=== PATIENT | male | born 1990 ===

== ENCOUNTER 2017-01-10 20:37 | Emergency (ER) | payer BC, SELFPAY ==
[2017-01-10 20:59] VITALS: TEMP 99.2
[2017-01-10] MEDS ORDERED: Sodium Chloride 0.9% 1,000 ML IV STA (21:06)
--- NOTE | 2017-01-10 21:41 | ED PDOC ---
Arrival/HPI <Yadiel Gonzalez - Last Filed: 01/10/17 23:05> - General Historian: Patient - History of Present Illness Time/Duration: Other (7 hours) Symptom Onset: Sudden Symptom Course: Worsening Quality: Stabbing, Other (sharp) Severity Level: 10, Severe Activities at Onset: Rest <Laura Bedolla - Last Filed: 01/11/17 01:59> - General Chief Complaint: Male Genitourinary Time Seen by Provider: 01/10/17 20:57 - History of Present Illness Narrative History of Present Illness (Text): 01/10/17 21:58 26-year-old male presents today with a sudden onset of right-sided testicular pain that started around 1 PM today. Patient states the pain has been gradually worsening. Patient with a history of testicular torsion in the past. He denies penile discharge. Denies urinary symptoms. No bladder or bowel incontinence. He denies abdominal pain. Denies back pain. Denies fevers or chills. Patient states she is sexually active with only one partner. No dizziness or weakness. No medications have been taken for pain at home. Patient denies any recent trauma or injury. Patient rates the pain as a 10 out of 10 sharp nonradiating pain. (Laura Bedolla) Past Medical History - Provider Review Nursing Documentation Reviewed: Yes - Travel History Have you recently traveled outside [place] w/in the past 3 mons?: No - Tetanus Immunization Tetanus Immunization: Unknown - Psychiatric Hx Substance Use: No - Surgical History Other/Comment: nail bed surgery <Laura Bedolla - Last Filed: 01/11/17 01:59> Family/Social History - Physician Review Nursing Documentation Reviewed: Yes Family/Social History: Unknown Family HX Smoking Status: Never Smoked Hx Alcohol Use: No Hx Substance Use: No <Laura Bedolla - Last Filed: 01/11/17 01:59> Allergies/Home Meds <Yadiel Gonzalez - Last Filed: 01/10/17 23:05> <Laura Bedolla - Last Filed: 01/11/17 01:59> Allergies/Adverse Reactions: Allergies No Known Allergies Allergy (Verified 01/10/17 20:58) Review of Systems - Review of Systems Constitutional: absent: Fatigue, Fevers Respiratory: absent: SOB, Cough Cardiovascular: absent: Chest Pain, Palpitations Gastrointestinal: Nausea. absent: Abdominal Pain, Constipation, Diarrhea, Vomiting Genitourinary Male: Other (+ testicular pain). absent: Dysuria, Frequency, Hematuria, Urinary Output Changes Musculoskeletal: absent: Arthralgias, Back Pain Skin: absent: Rash, Pruritis Neurological: absent: Headache, Dizziness Psychiatric: absent: Anxiety, Depression <Laura Bedolla - Last Filed: 01/11/17 01:59> Physical Exam Vital Signs Reviewed: Yes Temperature: Afebrile Blood Pressure: Hypertensive Pulse: Tachycardic Respiratory Rate: Normal Appearance: Positive for: Well-Appearing, Non-Toxic, Uncomfortable Pain Distress: Moderate Mental Status: Positive for: Alert and Oriented X 3 - Systems Exam Head: Present: Atraumatic Mouth: Present: Moist Mucous Membranes Respiratory/Chest: Present: Clear to Auscultation Cardiovascular: Present: Tachycardic. No: Murmurs Abdomen: No: Tenderness, Distention, Rebound, Guarding Genitourinary Male: Present: Normal External Genitalia, Testicle Tenderness, Other (elevation of right testicle; chaparoned by [employer] tech Gloria). No: Penile Discharge, Erythema, Testicle Swelling Back: Present: Normal Inspection. No: CVA Tenderness, Midline Tenderness, Paraspinal Tenderness Upper Extremity: Present: Normal ROM Lower Extremity: Present: Normal ROM Neurological: Present: GCS=15 Skin: Present: Warm, Dry, Normal Color. No: Rashes Psychiatric: Present: Alert, Oriented x 3 <Laura Bedolla - Last Filed: 01/11/17 01:59> Vital Signs Temp Pulse Resp BP Pulse Ox 01/11/17 00:18 89 18 128/84 98 01/10/17 20:59 99.2 F 116 H 22 154/86 H 99 Medical Decision Making <Yadiel Gonzalez - Last Filed: 01/10/17 23:05> <Laura Bedolla - Last Filed: 01/11/17 01:59> ED Course and Treatment: 01/10/17 22:02 26yr old male with testicular pain x 7 hours. no trauma or injury toradol zofran fluids cbc: [id number] cmp: bun; 23 ua:trace blood gc/chlamydia pending urine culture pending US: FINDINGS: Right testicle: No mass. No torsion. Left testicle: No mass. No torsion. Epididymides: Mildly heterogeneous, mildly enlarged, hypervascular RIGHT epididymis. Scrotum: Small RIGHT hydrocele. Trace LEFT hydrocele. RIGHT varicocele. IMPRESSION: 1. No sonographic evidence of testicular torsion. 2. Findings suggestive of RIGHT epididymitis. 3. Incidental/non-acute findings are described above Rocephin 250 IM, Zithromax 1 g by mouth pt reassessment; feeling better after medications will treat for gc/chlamydia; and d/c home with bactrim. I discussed all results in depth with the patient advised to follow-up with primary care physician within the next 2 days. Advised follow-up with urologist. I advised immediate return if symptoms worsen or persist or if new concerning symptoms develop Patient verbalizes understanding of discharge instructions and need for immediate followup. all aspects of this case were discussed the attending of record. impression; epididymitis, hydrocele, varicocele Motrin every 6 hours as needed for pain bactrim; 1 tablet twice daily x 7 days Follow up with a urologist within the next 2 days Follow-up primary care physician within the next 2 days Return immediately if symptoms worsen or persist or if new concerning symptoms develop 01/11/17 01:59 (Laura Bedolla) - Lab Interpretations Lab Results: 01/10/17 21:45 01/10/17 21:45 Lab Results 01/10/17 23:08: Urine Color Yellow, Urine Appearance Sl cloudy, Urine pH 6.0, Ur Specific [place] 1.025, Urine Protein Negative, Urine Glucose (UA) Negative, Urine Ketones Negative, Urine Blood Trace-intact H, Urine Nitrate Negative, Urine Bilirubin Negative, Urine Urobilinogen 0.2, Ur Leukocyte Esterase Negative , Urine RBC 1 - 3, Urine WBC 5 - 10, Ur Epithelial Cells 0 - 2, Urine Bacteria Rare 01/10/17 21:45: WBC 11.5 H, RBC 4.99, Hgb 15.3, Hct 43.1, MCV 86.4, MCH 30.7, MCHC 35.5, RDW 12.2, Plt Count 248, MPV 11.0, Gran % 62.9, Lymph % (Auto) 24.2, Clarke % (Auto) 10.5 H, Eos % (Auto) 2.2, Baso % (Auto) 0.2, Gran # 7.22 H, Lymph # 2.8, Clarke # 1.2 H, Eos # 0.3, Baso # 0.02, Sodium 141, Potassium 3.6, Chloride 101, Carbon Dioxide 27, Anion Gap 17, BUN 23 H, Creatinine 1.0, Est GFR ( Amer) > 60, Est GFR (Non-Af Amer) > 60, Random Glucose 88, Calcium 9.9, Total Bilirubin 0.8, AST 27, ALT 43, Alkaline Phosphatase 85, Total Protein 8.2, Albumin 4.8, Globulin 3.4, Albumin/Globulin Ratio 1.4 - RAD Interpretation Radiology Orders: 01/10/17 20:58 TESTES DUPLEX COMPLETE [US] Stat - Medication Orders Current Medication Orders: Discontinued Medications Azithromycin (Zithromax) 1,000 mg PO STAT STA PRN Reason: Protocol Stop: 01/10/17 22:46 Last Admin: 01/11/17 00:20 Dose: 1,000 MG Ceftriaxone Sodium (Rocephin) 250 mg IM STAT STA PRN Reason: Protocol Stop: 01/10/17 22:46 Last Admin: 01/11/17 00:20 Dose: 250 MG IM Administration Charges Document 01/11/17 00:20 OSVALDO (Rec: 01/11/17 00:20 [email or web address] [id number]) Injection Site MAR Injection Site Left Deltoid Charges for Administration # of IM Administrations 1 Sodium Chloride (Sodium Chloride 0.9%) 1,000 mls @ 999 mls/hr IV .Q1H1M STA Stop: 01/10/17 22:06 Last Admin: 01/10/17 21:58 Dose: 999 MLS/HR eMAR Start Stop Document 01/10/17 21:58 OSVALDO (Rec: 01/10/17 21:58 [email or web address] [id number]) Intravenous Solution Start Date 01/10/17 Start Time 21:58 End Date 01/10/17 End time 22:58 Total Infusion Time 60 Ketorolac Tromethamine (Toradol) 30 mg IVP STAT STA Stop: 01/10/17 21:41 Last Admin: 01/10/17 21:58 Dose: 30 MG IVP Administration Document 01/10/17 21:58 OSVALDO (Rec: 01/10/17 21:58 [email or web address] [id number]) Charges for Administration # of IVP Administrations 1 Lidocaine HCl (Lidocaine 1% (20ml)) Confirm Administered Dose 20 ml .ROUTE .STK- MED ONE Stop: 01/10/17 23:58 Last Admin: 01/11/17 00:21 Dose: 1.3 ML Comments: given with rocephin Ondansetron HCl (Zofran Inj) 4 mg IVP STAT STA Stop: 01/10/17 21:07 Last Admin: 01/10/17 21:58 Dose: 4 MG IVP Administration Document 01/10/17 21:58 OSVALDO (Rec: 01/10/17 21:58 [email or web address] [id number]) Charges for Administration # of IVP Administrations 1 Oxycodone/Acetaminophen (Percocet 5/325 Mg Tab) 1 tab PO STAT STA Stop: 01/10/17 22:47 Last Admin: 01/11/17 00:21 Dose: 1 TAB - PA / INTERNAL CONTROL SPECIALIST / Resident Statement / has reviewed & agrees with the documentation as recorded. <Yadiel Gonzalez - Last Filed: 01/10/17 23:05> Disposition/Present on Arrival <Yadiel Gonzalez - Last Filed: 01/10/17 23:05> - Present on Arrival Any Indicators Present on Arrival: No History of DVT/PE: No History of Uncontrolled Diabetes: No Urinary Catheter: No History of Decub. Ulcer: No History Surgical Site Infection Following: None - Disposition Have Diagnosis and Disposition been Completed?: Yes Disposition Time: 21:41 Patient Plan: Discharge <Laura Bedolla - Last Filed: 01/11/17 01:59> - Disposition Diagnosis: Epididymitis, Hydrocele, Varicocele Disposition: HOME/ ROUTINE Condition: GOOD Discharge Instructions (ExitCare): Epididymitis (ED), Hydrocele (ED), Varicocele (ED) Additional Instructions: Motrin every 6 hours as needed for pain bactrim; 1 tablet twice daily x 7 days Follow up with a urologist within the next 2 days Follow-up primary care physician within the next 2 days Return immediately if symptoms worsen or persist or if new concerning symptoms develop Prescriptions: Sulfamethoxazole/Trimethoprim [Bactrim DS 800 mg-160 mg] 1 tab PO BID #14 tab Ibuprofen [Motrin] 600 mg PO Q6H PRN #20 tab PRN Reason: pain/fever reduction Referrals: Ernie Sheth MD [Primary Care Provider] - Follow up with primary Danilo Morrison MD [Staff Provider] - Follow up with primary Forms: WORK NOTE
--- NOTE | 2017-01-10 21:46 | US ---
EXAM: US Scrotum CLINICAL HISTORY: 26 years old, male; Pain; Scrotum pain; Additional info: Testicular pain HX of torsion TECHNIQUE: Real-time ultrasound of the scrotum with color Doppler and image documentation. COMPARISON: No relevant prior studies available. FINDINGS: Right testicle: No mass. No torsion. Left testicle: No mass. No torsion. Epididymides: Mildly heterogeneous, mildly enlarged, hypervascular RIGHT epididymis. Scrotum: Small RIGHT hydrocele. Trace LEFT hydrocele. RIGHT varicocele. IMPRESSION: 1. No sonographic evidence of testicular torsion. 2. Findings suggestive of RIGHT epididymitis. 3. Incidental/non-acute findings are described above.
[2017-01-10 22:04] LABS: ADD MANUAL DIFF? NO
[2017-01-10 22:13] LABS: BASO # 0.02 K/mm3 (0.0-2.0); BASO % 0.2 % (0.0-3.0); EOS # 0.3 (0.0-0.7); EOS % 2.2 % (1.5-5.0); GRAN # 7.22 (1.4-6.5); GRAN % 62.9 % (50.0-68.0); HEMATOCRIT 43.1 % (42.0-52.0); LYMPH # 2.8 (1.2-3.4); LYMPH % 24.2 % (22.0-35.0); MEAN CELL VOLUME 86.4 fL (80.0-105.0); MEAN CORPUSCULAR HEMOGLOBIN 30.7 pg (25.0-35.0); MEAN CORPUSCULAR HGB CONC 35.5 g/dl (31.0-37.0); MONO # 1.2 (0.1-0.6); MONO % 10.5 % (1.0-6.0); PLATELET COUNT 248 10^3/uL (120.0-450.0); RED CELL DISTRIBUTION WIDTH 12.2 % (11.5-14.5); WHITE BLOOD COUNT 11.5 10^3/ul (4.5-11.0)
[2017-01-10 22:18] LABS: ALB/GLOB RATIO 1.4 (1.1-1.8); ALKALINE PHOSPHATASE 85 U/L (38-133); ALT/SGPT 43 U/L (7-56); AST/SGOT 27 U/L (15-59); BILIRUBIN,TOTAL 0.8 mg/dL (0.2-1.3); BLOOD UREA NITROGEN 23 mg/dL (7-21); CALCIUM 9.9 mg/dL (8.4-10.5); CARBON DIOXIDE 27 mmol/L (21-33); CHLORIDE 101 mmol/L (98-107); GFR AFRICAN-AMERICAN > 60; GLUCOSE,RANDOM 88 mg/dL (70-110); POTASSIUM 3.6 mmol/L (3.6-5.0); SODIUM 141 mmol/L (132-148); TOTAL PROTEIN 8.2 g/dL (5.8-8.3)
[2017-01-10] MEDS ORDERED: cefTRIAXone (Rocephin) 250 mg Inj IM STA (22:45)
[2017-01-10] MEDS ORDERED: Oxycodone/Acetaminophen 5/325 mg Tab PO STA (22:46)
[2017-01-10 23:33] LABS: URINE BILIRUBIN NEGATIVE (NEGATIVE); URINE BLOOD TRACE-INTACT (NEGATIVE); URINE GLUCOSE (UA) NEGATIVE (NEGATIVE); URINE KETONE NEGATIVE (NEGATIVE); URINE LEUKOCYTE ESTERASE NEGATIVE Leu/uL (NEGATIVE); URINE PROTEIN NEGATIVE mg/dL (<30 mg/dL); URINE UROBILINOGEN 0.2 E.U./dL (<1 E.U./dL)
[2017-01-10 23:47] LABS: URINE APPEARANCE SL CLOUDY (CLEAR); URINE COLOR YELLOW (YELLOW)
[2017-01-10 23:55] LABS: URINE BACTERIA RARE (NEG); URINE EPITHELIAL CELLS 0 - 2 /hpf (0-5)
[2017-01-10] MEDS ORDERED: Lidocaine 1% Inj (20ml) ONE (23:57)
[2017-01-11 00:18] VITALS: BP 128/84; PULSE 89; RESP 18; O2SAT 98
== END 2017-01-11 01:00 | disposition home or self-care (01) ==
LOC: ED 20:37
DX: N45.1 Epididymitis (principal); N43.3 Hydrocele, unspecified; I86.1 Scrotal varices
CPT/HCPCS: 80053; 81001; 85025; 87086; 87491; 87591; 93975; 96361; 96372; 96374; 96375; 99283; J0696; J1885; J2405; J7040